=== PATIENT | female | born 1980 | race Two or more races ===

== ENCOUNTER → 2023-12-14 15:31 | Outpatient (REF) | payer BC, SELFPAY | LOC: WDC 15:31 | PROVIDERS: ATTENDING PHYSICIAN Nurse Practitioner Family | DX: N63.10 Unspecified lump in the right breast, unspecified quadrant (principal); N63.15 Unspecified lump in the right breast, overlapping quadrants | CPT/HCPCS: 76642 ==

== ENCOUNTER → 2024-12-16 09:33 | Outpatient (REF) | payer BC, SELFPAY | LOC: WDC 09:33 | DX: N63.15 Unspecified lump in the right breast, overlapping quadrants (principal) | CPT/HCPCS: 76642; 77062; 77066 ==